=== PATIENT | female | born 1995 | race African-American/Black ===

== ENCOUNTER 2017-09-30 12:20 | Emergency (ER) | payer OTHER ==
[~2017-09-30] VITALS: Ht 160 cm; Wt 61.2 kg
[~2017-09-30 12:20] MED LIST: KEFLEX500 MG ORAL
[2017-09-30] MEDS ORDERED: Sodium Chloride 500ML 500 ML IV ONE (12:40)
--- NOTE | 2017-09-30 12:40 | Emergency Room Report ---
History of Present Illness General Chief Complaint: Abdominal Pain Present Illness HPI 22-year-old female presents to the emergency department complaining of 10 out of 10 in severity abdominal pain that has been progressive 3 days. Patient states that she initially had symptoms in the right upper quadrant and pain is progressed to localize in the right lower quadrant. constant and dull in nature with intermittent exacerbations that do not migrate. Patient states that currently the right lower quadrant is more tender and has more pain on the right upper quadrant. Patient states that early on she had exacerbation with deep breaths. Patient states that she notices her symptoms significantly and night time and is unable to sleep on the affected side. Patient denies trauma or fall. Patient denies constipation, diarrhea, nausea or vomiting. Patient does not recall if the pain gets worse after eating. Patient reports several hot flashes. Patient has no previous abdominal surgical history. Patient states that last year she was told she has small cyst on one of the ovaries that has not caused problems since. She denies dysuria, hematuria, urinary frequency or urgency. Patient states that she is currently on her period. She denies recent travel. Denies low back pain. Denies CP, Palpitations, LOC, AMS, dizziness, Changes in Vision, Sensation, paresthesias, or a sudden severe headache. Allergies: Coded Allergies: No Known Allergies (Unverified , 09/27/15) Patient History Past Medical History: see triage record Past Surgical History: none Pertinent Family History: none Last Menstrual Period: now Now: No Immunizations: UTD Reviewed Nursing Documentation: PMH: Agreed, PSxH: Agreed Nursing Documentation-PMH Hx Asthma: Yes Review of Systems All Other Systems: negative except mentioned in HPI Physical Exam Vital Signs Date Time Temp Pulse Resp B/P (MAP) Pulse Ox O2 Delivery O2 Flow Rate FiO2 09/30/17 12:32 98.2 94 20 94/57 99 Room Air 98.2 Sp02 EP Interpretation: reviewed, normal General Appearance: alert, GCS 15, non-toxic, moderate distress Head: normocephalic, atraumatic ENT: hearing grossly normal, normal voice Neck: full range of motion Respiratory: lungs clear, normal breath sounds, speaking full sentences Cardiovascular #1: regular rate, rhythm Gastrointestinal: normal bowel sounds, soft, tenderness - RLQ>RUQ tenderness, no left sided quandrant tenderness. pain with RUQ palpation and deep inhalation. Rectal: deferred Genitourinary: normal inspection, no CVA tenderness, adnexa normal - no appreciable tenderness as RUQ and RLQ. Musculoskeletal: back normal, gait/station normal, normal range of motion, non- tender Neurologic: alert, oriented x3, responsive, motor strength/tone normal, sensory intact, speech normal, grossly normal Psychiatric: judgement/insight normal Skin: normal color, no rash, warm/dry, well hydrated Medical Decision Making PA Attestation Dr. Hays is my supervising Physician whom patient management has been discussed with. Diagnostic Impression: Primary Impression: Abdominal pain Qualified Codes: R10.31 - Right lower quadrant pain Additional Impression: Free fluid in pelvis ER Course 22-year-old female presents to the emergency department complaining of 10 out of 10 in severity abdominal pain that has been progressive 3 days. Patient states that she initially had symptoms in the right upper quadrant and pain is progressed to localize in the right lower quadrant. constant and dull in nature with intermittent exacerbations that do not migrate. Patient states that currently the right lower quadrant is more tender and has more pain on the right upper quadrant. Patient states that early on she had exacerbation with deep breaths. Patient states that she notices her symptoms significantly and night time and is unable to sleep on the affected side. Patient denies trauma or fall. Patient denies constipation, diarrhea, nausea or vomiting. Patient does not recall if the pain gets worse after eating. Patient reports several hot flashes. Patient has no previous abdominal surgical history. Patient states that last year she was told she has small cyst on one of the ovaries that has not caused problems since. She denies dysuria, hematuria, urinary frequency or urgency. Patient states that she is currently on her period. She denies recent travel. Denies low back pain. Denies CP, Palpitations, LOC, AMS, dizziness, Changes in Vision, Sensation, paresthesias, or a sudden severe headache. Ddx considered but are not limited to Diverticulitis, acute appy, diarrhea,UC, PUD, GE, pancreatitis, gallstone, , ectopic, torsion, or ovarian cyst just to name a few. Vital signs: are WNL, pt. is afebrile H&PE are most consistent with Moderate to sever RLQ and RUQ abdominal pain with tenderness will do labs and imaging to r/o emergent/surgical pathology. ORDERS: -CBC:unremarkable -CMP:unremarkable - lipase: WNL - UA: rbc's and occult blood consistent with menstruation. -Urine Hcg: Negative CT Abdomen & Pelvis W. Contrast: ED INTERVENTIONS: -- 500cc NS -Toradol 15mg Iv -Percocet PO DISCHARGE: At this time pt. is stable for d/c to home. Will provide printed patient care instructions, and any necessary prescriptions. Care plan and follow up instructions have been discussed with the patient prior to discharge. Labs Test 09/30/17 13:00 White Blood Count 6.7 K/UL (4.8-10.8) Red Blood Count 4.94 M/UL (4.20-5.40) Hemoglobin 12.7 G/DL (12.0-16.0) Hematocrit 39.6 % (37.0-47.0) Mean Corpuscular Volume 80 FL (80-99) Mean Corpuscular Hemoglobin 25.8 PG (27.0-31.0) Mean Corpuscular Hemoglobin Concent 32.1 G/DL (32.0-36.0) Red Cell Distribution Width 13.1 % (11.6-14.8) Platelet Count 258 K/UL (150-450) Mean Platelet Volume 6.8 FL (6.5-10.1) Neutrophils (%) (Auto) 52.5 % (45.0-75.0) Lymphocytes (%) (Auto) 33.9 % (20.0-45.0) Monocytes (%) (Auto) 10.1 % (1.0-10.0) Eosinophils (%) (Auto) 2.7 % (0.0-3.0) Basophils (%) (Auto) 0.9 % (0.0-2.0) Urine Color Yellow Urine Appearance Clear Urine pH 7 (4.5-8.0) Urine Specific [place] 1.015 (1.005-1.035) Urine Protein Negative (NEGATIVE) Urine Glucose (UA) Negative (NEGATIVE) Urine Ketones Negative (NEGATIVE) Urine Occult Blood 5+ (NEGATIVE) Urine Nitrite Negative (NEGATIVE) Urine Bilirubin Negative (NEGATIVE) Urine Urobilinogen 4 MG/DL (0.0-1.0) Urine Leukocyte Esterase Negative (NEGATIVE) Urine RBC 5-10 /HPF (0 - 2) Urine WBC 2-4 /HPF (0 - 2) Urine Squamous Epithelial Cells Few /LPF (NONE/OCC) Urine Bacteria Few /HPF (NONE) Urine HCG, Qualitative Negative (NEGATIVE) Sodium Level 138 MMOL/L (136-145) Potassium Level 3.9 MMOL/L (3.5-5.1) Chloride Level 102 MMOL/L (98-107) Carbon Dioxide Level 29 MMOL/L (21-32) Anion Gap 7 mmol/L (5-15) Blood Urea Nitrogen 10 mg/dL (7-18) Creatinine 0.8 MG/DL (0.55-1.30) Estimat Glomerular Filtration Rate > 60 mL/min (>60) Glucose Level 95 MG/DL (74-106) Calcium Level 9.3 MG/DL (8.5-10.1) Total Bilirubin 0.4 MG/DL (0.2-1.0) Aspartate Amino Transf (AST/SGOT) 19 U/L (15-37) Alanine Aminotransferase (ALT/SGPT) 15 U/L (12-78) Alkaline Phosphatase 87 U/L (46-116) Total Protein 8.5 G/DL (6.4-8.2) Albumin 3.5 G/DL (3.4-5.0) Globulin 5.0 g/dL Albumin/Globulin Ratio 0.7 (1.0-2.7) Lipase 105 U/L (73-393) CT/MRI/US Diagnostic Results CT/MRI/US Diagnostic Results : Imaging Test Ordered: CT Abdomen & Pelvis with Contrast Impression "decompressed right ovarian follicle with small amount of free fluid, normal appendix." Per official radiology report- Please see report for specific details. Last Vital Signs Date Time Temp Pulse Resp B/P (MAP) Pulse Ox O2 Delivery O2 Flow Rate FiO2 09/30/17 12:32 98.2 94 20 94/57 99 Room Air 98.2 Disposition: HOME, SELF-CARE Condition: Stable Departure Forms: Return to Work Return to Work Date: Oct 04, 2017 Work Restrictions: None Return to Full Activity: Oct 04, 2017 Patient Instructions: Abdominal Pain, Adult, Ovarian Cyst Additional Instructions: Take medications as directed. Follow up with a Primary Care Provider in 3-5 days, even if your symptoms have resolved. --Please review list of primary care clinics, if you do not already have a primary care provider Return sooner to ED if new symptoms occur, or current symptoms become worse. Do not drink alcohol, drive, or operate heavy machinery while taking [ ] as this may cause drowsiness. - Please note that this Emergency Department Report was dictated using Geckoboardlacing operator technology software, occasionally this can lead to erroneous entry secondary to interpretation by the dictation equipment. Stefanie Araujo Sep 30, 2017 12:40
[2017-09-30 12:41] VITALS: BP 108/63
[2017-09-30] MEDS ORDERED: Ketorolac 30mg Inj IV ONE (12:45)
[2017-09-30 13:15] LABS: APPEARANCE,URINE CLEAR; BILIRUBIN, URINE NEGATIVE (NEGATIVE); GLUCOSE, URINE (UA) NEGATIVE (NEGATIVE); KETONES,URINE NEGATIVE (NEGATIVE); LEUKOCYTE ESTERASE ,URINE NEGATIVE (NEGATIVE); NITRITE,URINE NEGATIVE (NEGATIVE); PH,URINE 7 (4.5-8.0); PROTEIN,URINE NEGATIVE (NEGATIVE); UROBILINOGEN,URINE 4 MG/DL (0.0-1.0)
[2017-09-30 13:16] LABS: COLOR,URINE YELLOW
[2017-09-30 13:17] LABS: BASOPHILS % (AUTO) 0.9 % (0.0-2.0); EOSINOPHILS % (AUTO) 2.7 % (0.0-3.0); HEMATOCRIT 39.6 % (37.0-47.0); HEMOGLOBIN 12.7 G/DL (12.0-16.0); LYMPHOCYTES % (AUTO) 33.9 % (20.0-45.0); MEAN CORPUSCULAR VOLUME 80 FL (80-99); MONOCYTES % (AUTO) 10.1 % (1.0-10.0); NEUTROPHILS % (AUTO) 52.5 % (45.0-75.0); PLATELET COUNT 258 K/UL (150-450); RED BLOOD COUNT 4.94 M/UL (4.20-5.40); RED CELL DISTRIBUTION WIDTH 13.1 % (11.6-14.8); WHITE BLOOD COUNT 6.7 K/UL (4.8-10.8)
[2017-09-30 13:23] LABS: ANION GAP 7 mmol/L (5-15); BLOOD UREA NITROGEN 10 mg/dL (7-18); CALCIUM 9.3 MG/DL (8.5-10.1); CARBON DIOXIDE 29 MMOL/L (21-32); CHLORIDE 102 MMOL/L (98-107); CREATININE 0.8 MG/DL (0.55-1.30); POTASSIUM 3.9 MMOL/L (3.5-5.1); SODIUM 138 MMOL/L (136-145)
[2017-09-30 13:27] LABS: ALANINE AMINOTRANSFERASE 15 U/L (12-78); ALBUMIN 3.5 G/DL (3.4-5.0); ALBUMIN/GLOBULIN RATIO 0.7 (1.0-2.7); ALKALINE PHOSPHATASE 87 U/L (46-116); ASPARTATE AMINO TRANSFERASE 19 U/L (15-37); BILIRUBIN,TOTAL 0.4 MG/DL (0.2-1.0)
[2017-09-30 13:34] VITALS: BP 108/63
--- NOTE | 2017-09-30 14:44 | Diagnostic Imaging Report ---
Clinical Indication: Right upper quadrant pain progressively worsening over 3 days now with some right lower quadrant pain Technique: No oral contrast utilized, per emergency room physician request IV administration nonionic contrast. Venous phase spiral acquisition obtained through the abdomen and pelvis. Multiplanar reconstructions were generated. Total dose length product 450.72 mGycm. CTDIvol(s) 9.6 mGy. Dose reduction achieved using automated exposure control Comparison: none Findings: Lack of enteric contrast limits evaluation of the GI tract. The appendix is normal. There is no evidence of diverticulosis or diverticulitis. The rectum is minimally distended with stool. Trace fluid is seen in the pelvic cul-de-sac. A small to moderate amount of fluid is seen within the small bowel. Small bowel is nondilated. No free intraperitoneal air. There is a small broad-based fat-containing umbilical hernia. The liver, gallbladder, bile ducts, pancreas, spleen, adrenals are unremarkable. Left kidney demonstrates an upper pole subcentimeter low-attenuation lesion which is too small to characterize. The right kidney is unremarkable. No retroperitoneal or mesenteric mass or adenopathy. The ovaries are prominent, that on the left measuring 5.4 cm long axis dimension, that on the right measuring 4.1 cm. What seriously may be a collapsed follicle is seen in the right ovary. The included lung bases are clear. The bones are unremarkable. Impression: No definite acute process Prominent ovaries, particularly the left. Consider ultrasound for further evaluation if there is clinical concern for pelvic pathology Possible collapsed follicle right ovary. Small amount of free pelvic fluid, presented physiologic, possibly secondary to such Subcentimeter left upper pole low-attenuation renal lesion, too small to characterize, most likely benign simple cysts. No further follow-up necessary Incidental findings tiny broad-based fat-containing umbilical hernia The CT scanner at [facility] is accredited by the [employer] and the scans are performed using protocols designed to limit radiation exposure to as low as reasonably achievable to attain images of sufficient resolution adequate for diagnostic evaluation.
[2017-09-30] MEDS ORDERED: oxyCODONE HCL/Acetaminophen 5/325mg ORAL ONE (15:00)
[2017-09-30] MEDS ORDERED: IBUPROFEN600 MG ORAL (15:07)
[2017-09-30 15:14] VITALS: BP 108/63
== END 2017-09-30 15:16 | disposition home or self-care (01) ==
LOC: EMR 12:58
DX: R10.11 Right upper quadrant pain (principal); J45.909 Unspecified asthma, uncomplicated
CPT/HCPCS: 36415; 74177; 80053; 81003; 81025; 83690; 85025; 96374; 96375; 99284; J1885; J7040; Q9967; S0028

== ENCOUNTER 2020-01-12 18:11 | Emergency (ER) | payer MEDICAID, OTHER ==
[~2020-01-12] VITALS: Ht 160 cm; Wt 65.8 kg
[~2020-01-12 18:11] MED LIST changes: +IBUPROFEN600 MG ORAL
[2020-01-12 18:14] VITALS: BP 107/72
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
[2020-01-12] MEDS ORDERED: Methocarbamol 750mg tab ORAL ONE (18:30)
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
--- NOTE | 2020-01-12 19:01 | NUR ---
ED Nurse Note: Report given to LAWANDA Gagnon. X-ray tech taking patient for CT exam.
--- NOTE | 2020-01-12 19:02 | NUR ---
ED Nurse Note: Received report from Mariana WEBBER. Pt AAOx4, verbally responsive. Pt was taken to CT via wc.
--- NOTE | 2020-01-12 19:21 | NUR ---
ED Nurse Note: Pt returned from CT.
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
[2020-01-12] MEDS ORDERED: LIDODERM700 M1 TOPIC (19:47)
[2020-01-12] MEDS ORDERED: IBUPROFEN600 M1 ORAL (19:47)
[2020-01-12] MEDS ORDERED: ROBAXIN-500MG ORAL (19:47)
[2020-01-12 19:55] VITALS: BP 110/69
--- NOTE | 2020-01-12 19:55 | NUR ---
ED Nurse Note: Pt cleared by ERPA for discharge. DC instructions/prescription was given and explained to pt and verbalized understanding of teachings. All medical deviecs such as ID band removed. Pt is AAO x4, ambulatory and left with all personal belongings.
== END 2020-01-12 19:55 | disposition home or self-care (01) ==
LOC: EMR 18:32
DX: S60.222A Contusion of left hand, initial encounter (principal); S16.1XXA Strain of muscle, fascia and tendon at neck level, initial encounter; S39.012A Strain of muscle, fascia and tendon of lower back, initial encounter; V49.9XXA Car occupant (driver) (passenger) injured in unspecified traffic accident, initial encounter; Y92.410 Unspecified street and highway as the place of occurrence of the external cause; M25.521 Pain in right elbow
CPT/HCPCS: 72125; 72131; 72192; 73130; 81025; Z7502; 99284